=== PATIENT | male | born 1985 | race Caucasian/White ===

== ENCOUNTER 2019-04-30 14:44 | Outpatient (CLI) | payer OTHER ==
--- NOTE | 2019-05-01 13:50 | MRI Report ---
Reason: PAIN IN RIGHT KNEE Procedure Date: 04/30/2019 Accession Number: [id number] / [id number] Procedure: MRI - Knee RT W/O CPT Code: FULL RESULT: EXAM: RIGHT KNEE MRI WITHOUT CONTRAST EXAM DATE: 04/30/2019 03:57 PM. CLINICAL HISTORY: Pain in right knee. COMPARISON: None. TECHNIQUE: Multiplanar, multisequence T1-weighted and fluid-sensitive sequences of the knee without contrast. Other: None. FINDINGS: Cruciate Ligaments: The anterior and posterior cruciate ligaments appear intact. Medial Meniscus: Blunting of the free margin of the body. Possible flap fragment from the anterior horn extending into the anterolateral weightbearing aspect of the joint. Lateral Meniscus: Intact. No tear is identified. Collateral Ligaments: The medial and fibular collateral limits. Intact pubic bones and articular surfaces: Slight cartilage thinning in the weightbearing medial compartment. No significant joint effusion. Minimal patellar chondromalacia. Extensor Mechanism: The patellar tendon and quadriceps insertion appear intact. IMPRESSION: 1. Possible flap fragment attached to the anterior horn medial meniscus extending into the anterolateral weightbearing aspect of the medial compartment. Associated blunting of the free margin of the body. 2. Slight cartilage thinning in the weightbearing medial compartment. 3. Minimal patellar chondromalacia. RADIA
== END 2019-04-30 14:45 | disposition home or self-care (01) ==
LOC: DI 14:44
PROVIDERS: ATTEND Student in an Organized Health Care Education/Training Program
DX: M25.561 Pain in right knee (principal); M22.41 Chondromalacia patellae, right knee